=== PATIENT | male | born 1965 | race Hispanic/Latino ===

== ENCOUNTER 2017-10-22 18:46 | Emergency (ER) | payer SELFPAY ==
[~2017-10-22] VITALS: Ht 182.9 cm; Wt 103.4 kg
[~2017-10-22 18:46] MED LIST: AMLODIPINE5 MG PO; AMOXICILLIN400 MG OR; ATENOLOL50 MG PO; BACTRIM DS PO; BACTRIM DS1 TAB PO; BENADRYL 50MG C50 MG PO; BUSPIRONE15 M1 OR; CEPHALEXIN500 MG OR; CIPRO500 MG OR; CRESTOR10 MG OR; DOESN'T KNOW MEDS; FLAGYL500 MG OR; GLIMEPIRIDE2 MG PO; GLUCOVANCE5 MG/500 M OR; GLYNASE3 MG OR; HYDROCHLOROT25 MG OR; IBUPROFEN800 MG PO; ISOSORB MONO30 MG OR; JANUVIA100 MG OR; JANUVIA100 MG PO; LEXAPRO20 MG OR; LISINOP/HCTZ1 TAB OR; LISINOPRIL10 MG PO; LISINOPRIL20 MG OR; LORTAB PO; LOTREL1 CA3 OR; LYRICA150 MG PO; MEDDOSEPAK PO; METFORMIN1000 MG PO; METFORMIN500 M1 PO; METFORMIN500 M2 OR; METFORMIN500 MG PO; NALTREXONE50 MG OR; NAPROSYN500 MG PO; NITROGLYCER0.4 MG SL; NORVASC5 MG PO; PEPCID20 MG PO; PERCOCET 5/325M1 TAB OR; PRAVACHOL80 MG OR; PRAVASTATIN80 MG PO; RELION ULTIMA T1 TES XX; ROBITUSSIN AC10 ML OR; TENORMIN OR; [UNRECOGNIZED DRUG - REMARK]
[2017-10-22 20:18] LABS: URINE BILIRUBIN - DIPSTICK NEGATIVE (NEGATIVE); URINE BLOOD DIPSTICK NEGATIVE (NEGATIVE); URINE COLOR YELLOW; URINE GLUCOSE - DIPSTICK 500 mg/dL (NEGATIVE); URINE KETONE NEGATIVE (NEGATIVE); URINE NITRITE - DIPSTICK NEGATIVE (Negative); URINE PH 6.5 (4.5-8.0); URINE PROTEIN - DIPSTICK NEGATIVE (NEG-TRACE); URINE SPECIFIC GRAVITY 1.025
[2017-10-22 20:25] LABS: URINE CLARITY CLEAR; URINE LEUK ESTERASE SMALL (NEGATIVE)
[2017-10-22 20:36] LABS: URINE RBC 0-2 RBC/hpf (0-5); URINE SQUAMOUS EPITHELIAL CELL RARE EPI/hpf (0-FEW)
[2017-10-22 20:40] LABS: IMMATURE GRANULOCYTES 0.6 % (0.0-1.0); MEAN CELL VOLUME 111.8 fL CALC (80.0-100.0); MEAN CORPUSCULAR HGB 41.5 pG CALC (26.0-32.0); MEAN CORPUSCULAR HGB CONC 37.1 g/L CALC (32.0-36.0); NEUT# 7.64 thou/uL (1.82-7.42); RED BLOOD COUNT 3.13 mill/uL (4.70-6.10); RED CELL DISTRI WIDTH 11.8 % (11.5-15.5)
[2017-10-22 20:52] LABS: ALBUMIN 4.5 g/dL (3.2-5.0); ALKALINE PHOSPHATASE 94 u/l (38-126); AMYLASE 57 u/l (30-110); ANION GAP 17 (6-22 (CALC)); BILIRUBIN, TOTAL 0.6 mg/dL (0.0-1.4); BUN 14 mg/dL (9-20); BUN/CREATININE RATIO 16 (12-20 (CALC)); CALCIUM 9.8 mg/dL (8.4-10.2); CARBON DIOXIDE 25 mmol/l (22-30); CHLORIDE 100 mmol/l (95-108); CREATININE 0.9 mg/dL (0.7-1.3); GFR > 60 ML/MIN (>=60 (CALC)); GFR FOR AFR.AMER. > 60 ML/MIN (>=60 (CALC)); GLUCOSE 266 mg/dL (75-110); LIPASE 137 u/l (23-300); POTASSIUM 3.6 mmol/l (3.5-5.1); SGOT/AST 30 u/l (17-59); SGPT/ALT 36 u/l (21-72); SODIUM 139 mmol/l (137-146); TOTAL PROTEIN 7.3 g/dL (6.3-8.2)
[2017-10-22 21:04] LABS: MYOGLOBIN 62 ng/mL (0 - 121)
[2017-10-23] MEDS ORDERED: PREVACID30 M2 PO (00:29)
[2017-10-23] MEDS ORDERED: ZOFRAN ODT4 MG PO (00:29)
[2017-10-23] MEDS ORDERED: ULTRAM50 M1 PO (00:29)
[2017-10-23 00:30] VITALS: BP 153/85
== END 2017-10-23 00:30 | disposition left against medical advice (07) | DRG 392 ==
LOC: ED 18:46
PROVIDERS: Emergency Medicine
DX: R10.13 Epigastric pain (principal); R19.01 Right upper quadrant abdominal swelling, mass and lump; K80.20 Calculus of gallbladder without cholecystitis without obstruction; E11.9 Type 2 diabetes mellitus without complications; I10 Essential (primary) hypertension; Z91.19 Patient's noncompliance with other medical treatment and regimen
CPT/HCPCS: S0164

== ENCOUNTER 2018-03-02 06:40 | Emergency (ER) | payer SELFPAY ==
[~2018-03-02] VITALS: Ht 182.9 cm; Wt 100.0 kg
[~2018-03-02 06:40] MED LIST changes: +PREVACID30 M2 PO; +ULTRAM50 M1 PO; +ZOFRAN ODT4 MG PO
[2018-03-02 07:22] LABS: IMMATURE GRANULOCYTES 4.3 % (0.0-1.0); MEAN CORPUSCULAR HGB 40.9 pG CALC (26.0-32.0); MEAN CORPUSCULAR HGB CONC 33.7 g/L CALC (32.0-36.0); NEUT# 6.51 thou/uL (1.82-7.42); RED BLOOD COUNT 1.54 mill/uL (4.70-6.10); RED CELL DISTRI WIDTH 19.5 % (11.5-15.5)
[2018-03-02 07:26] LABS: HEMATOCRIT 18.7 % (39.0-50.0); HEMOGLOBIN 6.3 g/dl (14.0-18.0); MEAN CELL VOLUME 121.4 fL CALC (80.0-100.0)
[2018-03-02 07:28] LABS: ANION GAP 11 (6-22 (CALC)); BILIRUBIN, TOTAL 1.1 mg/dL (0.0-1.4); BUN 15 mg/dL (9-20); BUN/CREATININE RATIO 24 (12-20 (CALC)); CARBON DIOXIDE 28 mmol/l (22-30); CHLORIDE 101 mmol/l (95-108); CREATININE 0.6 mg/dL (0.7-1.3); GFR > 60 ML/MIN (>=60 (CALC)); GFR FOR AFR.AMER. > 60 ML/MIN (>=60 (CALC)); POTASSIUM 3.5 mmol/l (3.5-5.1); SGPT/ALT 43 u/l (21-72); SODIUM 137 mmol/l (137-146); TOTAL PROTEIN 6.3 g/dL (6.3-8.2)
[2018-03-02 07:32] LABS: ALBUMIN 3.1 g/dL (3.2-5.0); ALKALINE PHOSPHATASE 250 u/l (38-126); SGOT/AST 59 u/l (17-59)
[2018-03-02 08:02] LABS: TSH, 3RD GENERATION 1.9 uIU/mL (0.47 - 4.68)
[2018-03-02 09:35] VITALS: BP 112/65
[2018-03-02 10:15] VITALS: BP 108/67
== END 2018-03-02 10:42 | disposition short-term general hospital (02) | DRG 378 ==
LOC: ED 06:40
PROVIDERS: Emergency Medicine; Family Medicine
PROC: 30233N1 Transfusion of Nonautologous Red Blood Cells into Peripheral Vein, Percutaneous Approach (ICD-10-PCS; principal; 2018-03-02)
DX: K92.2 Gastrointestinal hemorrhage, unspecified (principal); D64.9 Anemia, unspecified; C78.7 Secondary malignant neoplasm of liver and intrahepatic bile duct; C80.1 Malignant (primary) neoplasm, unspecified; I10 Essential (primary) hypertension; E11.9 Type 2 diabetes mellitus without complications
CPT/HCPCS: P9016; Q9967

== ENCOUNTER 2018-03-10 19:35 | Inpatient (IN) | payer OTHER ==
[~2018-03-10] VITALS: Ht 182.9 cm; Wt 102.0 kg
[2018-03-10 21:07] LABS: MEAN CORPUSCULAR HGB 34.5 pG CALC (26.0-32.0); MEAN CORPUSCULAR HGB CONC 32.2 g/L CALC (32.0-36.0); NEUT# 16.41 thou/uL (1.82-7.42); RED BLOOD COUNT 2.84 mill/uL (4.70-6.10); RED CELL DISTRI WIDTH 23.3 % (11.5-15.5)
[2018-03-10 21:09] LABS: URINE BLOOD DIPSTICK NEGATIVE (NEGATIVE); URINE GLUCOSE - DIPSTICK NEGATIVE (NEGATIVE); URINE KETONE NEGATIVE (NEGATIVE); URINE LEUK ESTERASE NEGATIVE (NEGATIVE); URINE NITRITE - DIPSTICK NEGATIVE (Negative); URINE PH 5.5 (4.5-8.0); URINE PROTEIN - DIPSTICK TRACE mg/dL (NEG-TRACE); URINE SPECIFIC GRAVITY 1.025; URINE UROBILINOGEN - DIPSTICK >=8.0 E.U./dL (0.2)
[2018-03-10 21:10] LABS: HEMATOCRIT 30.4 % (39.0-50.0); HEMOGLOBIN 9.8 g/dl (14.0-18.0)
[2018-03-10 21:13] LABS: URINE BILIRUBIN - DIPSTICK NEGATIVE (NEGATIVE); URINE CLARITY CLEAR; URINE COLOR AMBER
[2018-03-10 21:18] LABS: ALKALINE PHOSPHATASE 317 u/l (38-126); ANION GAP 14 (6-22 (CALC)); BILIRUBIN, TOTAL 1.4 mg/dL (0.0-1.4); BUN 12 mg/dL (9-20); BUN/CREATININE RATIO 16 (12-20 (CALC)); CARBON DIOXIDE 28 mmol/l (22-30); CHLORIDE 98 mmol/l (95-108); CREATININE 0.8 mg/dL (0.7-1.3); GFR > 60 ML/MIN (>=60 (CALC)); GFR FOR AFR.AMER. > 60 ML/MIN (>=60 (CALC)); SGOT/AST 79 u/l (17-59); SGPT/ALT 48 u/l (21-72); SODIUM 136 mmol/l (137-146); TOTAL PROTEIN 6.4 g/dL (6.3-8.2)
[2018-03-10 21:19] LABS: POTASSIUM 4.3 mmol/l (3.5-5.1)
[2018-03-10 23:55] VITALS: BP 125/69
[2018-03-11 04:09] VITALS: BP 116/68
[2018-03-11 05:47] LABS: ANION GAP 12 (6-22 (CALC)); BUN 12 mg/dL (9-20); BUN/CREATININE RATIO 17 (12-20 (CALC)); CARBON DIOXIDE 26 mmol/l (22-30); CHLORIDE 101 mmol/l (95-108); CREATININE 0.7 mg/dL (0.7-1.3); GFR > 60 ML/MIN (>=60 (CALC)); GFR FOR AFR.AMER. > 60 ML/MIN (>=60 (CALC)); HEMATOCRIT 25.8 % (39.0-50.0); HEMOGLOBIN 8.4 g/dl (14.0-18.0); IMMATURE GRANULOCYTES 1.5 % (0.0-1.0); MEAN CELL VOLUME 107.1 fL CALC (80.0-100.0); MEAN CORPUSCULAR HGB 34.9 pG CALC (26.0-32.0); MEAN CORPUSCULAR HGB CONC 32.6 g/L CALC (32.0-36.0); NEUT# 15.51 thou/uL (1.82-7.42); POTASSIUM 4.1 mmol/l (3.5-5.1); RED BLOOD COUNT 2.41 mill/uL (4.70-6.10); RED CELL DISTRI WIDTH 23.2 % (11.5-15.5); SODIUM 136 mmol/l (137-146)
[2018-03-11 08:42] VITALS: BP 116/69
[2018-03-11 11:00] VITALS: BP 116/67
[2018-03-11 15:17] LABS: CHOLESTEROL HDL RATIO 6.5 (<4.4 (CALC)); MAGNESIUM 2.3 mg/dL (1.6-2.3)
[2018-03-11 16:50] VITALS: BP 116/71
[2018-03-11 19:00] VITALS: BP 111/66
[2018-03-12 00:05] VITALS: BP 106/65
[2018-03-12 04:20] VITALS: BP 112/70
[2018-03-12 05:03] LABS: HEMATOCRIT 26.1 % (39.0-50.0); HEMOGLOBIN 8.2 g/dl (14.0-18.0); IMMATURE GRANULOCYTES 1.8 % (0.0-1.0); MEAN CELL VOLUME 106.5 fL CALC (80.0-100.0); MEAN CORPUSCULAR HGB 33.5 pG CALC (26.0-32.0); MEAN CORPUSCULAR HGB CONC 31.4 g/L CALC (32.0-36.0); NEUT# 15.11 thou/uL (1.82-7.42); RED BLOOD COUNT 2.45 mill/uL (4.70-6.10); RED CELL DISTRI WIDTH 22.5 % (11.5-15.5)
[2018-03-12 05:25] LABS: ANION GAP 12 (6-22 (CALC)); BUN 11 mg/dL (9-20); BUN/CREATININE RATIO 17 (12-20 (CALC)); CARBON DIOXIDE 26 mmol/l (22-30); CHLORIDE 103 mmol/l (95-108); CREATININE 0.7 mg/dL (0.7-1.3); GFR > 60 ML/MIN (>=60 (CALC)); GFR FOR AFR.AMER. > 60 ML/MIN (>=60 (CALC)); MAGNESIUM 2.2 mg/dL (1.6-2.3); POTASSIUM 4.4 mmol/l (3.5-5.1); SODIUM 136 mmol/l (137-146)
[2018-03-12 07:49] VITALS: BP 101/62
[2018-03-12 11:08] VITALS: BP 104/62
[2018-03-12] MEDS ORDERED: OXYCODONE/ACETA1 TA8 PO (12:40)
[2018-03-12] MEDS ORDERED: METRONIDAZOL500 MG PO (12:40)
[2018-03-12] MEDS ORDERED: CIPROFLOXACN500 MG PO (12:40)
[2018-03-12 15:16] VITALS: BP 99/64
== END 2018-03-12 16:10 | disposition home or self-care (01) | DRG 872 ==
LOC: ED 19:35 → ED-I 22:20 → ED 22:44 → MS2 22:45
PROVIDERS: Nurse Practitioner Family; ADMIT Internal Medicine; ATTEND Internal Medicine
PROC: 3E0234Z Introduction of Serum, Toxoid and Vaccine into Muscle, Percutaneous Approach (ICD-10-PCS; principal; 2018-03-12)
DX: A41.9 Sepsis, unspecified organism (principal); C78.7 Secondary malignant neoplasm of liver and intrahepatic bile duct; C16.9 Malignant neoplasm of stomach, unspecified; R18.8 Other ascites; E11.9 Type 2 diabetes mellitus without complications; D64.9 Anemia, unspecified; K59.00 Constipation, unspecified; I10 Essential (primary) hypertension; E78.5 Hyperlipidemia, unspecified; G89.3 Neoplasm related pain (acute) (chronic); Z79.84 Long term (current) use of oral hypoglycemic drugs; M62.59 Muscle wasting and atrophy, not elsewhere classified, multiple sites; Z23 Encounter for immunization

== ENCOUNTER 2018-03-23 21:35 | Emergency (ER) | payer OTHER ==
[~2018-03-23] VITALS: Ht 182.9 cm; Wt 105.0 kg
[~2018-03-23 21:35] MED LIST changes: +CIPROFLOXACN500 MG PO; +METRONIDAZOL500 MG PO; +OXYCODONE/ACETA1 TA8 PO
[2018-03-23] MEDS ORDERED: FUROSEMIDE40 MG PO (21:45)
[2018-03-23 23:13] LABS: HEMATOCRIT 30.5 % (39.0-50.0); HEMOGLOBIN 9.6 g/dl (14.0-18.0); IMMATURE GRANULOCYTES 1.8 % (0.0-1.0); MEAN CELL VOLUME 101.7 fL CALC (80.0-100.0); MEAN CORPUSCULAR HGB CONC 31.5 g/L CALC (32.0-36.0); NEUT# 16.13 thou/uL (1.82-7.42); RED CELL DISTRI WIDTH 21.5 % (11.5-15.5)
[2018-03-23 23:26] LABS: ALKALINE PHOSPHATASE 390 u/l (38-126); AMYLASE 91 u/l (30-110); ANION GAP 16 (6-22 (CALC)); BILIRUBIN, TOTAL 0.8 mg/dL (0.0-1.4); BUN 10 mg/dL (9-20); BUN/CREATININE RATIO 17 (12-20 (CALC)); CARBON DIOXIDE 26 mmol/l (22-30); CHLORIDE 102 mmol/l (95-108); CREATININE 0.6 mg/dL (0.7-1.3); GFR > 60 ML/MIN (>=60 (CALC)); GFR FOR AFR.AMER. > 60 ML/MIN (>=60 (CALC)); LIPASE 334 u/l (23-300); POTASSIUM 4.4 mmol/l (3.5-5.1); SGOT/AST 73 u/l (17-59); SGPT/ALT 39 u/l (21-72); SODIUM 139 mmol/l (137-146); TOTAL PROTEIN 6.3 g/dL (6.3-8.2)
[2018-03-24] MEDS ORDERED: LORTAB 1010 MG PO (00:21)
[2018-03-24] MEDS ORDERED: CIPROFLOXACN500 MG PO (00:21)
[2018-03-24 00:40] VITALS: BP 117/74
== END 2018-03-24 00:40 | disposition home or self-care (01) | DRG 948 ==
LOC: ED 21:35
PROVIDERS: Emergency Medicine
DX: G89.3 Neoplasm related pain (acute) (chronic) (principal); C16.9 Malignant neoplasm of stomach, unspecified; C79.9 Secondary malignant neoplasm of unspecified site; E11.9 Type 2 diabetes mellitus without complications; I10 Essential (primary) hypertension; Z79.899 Other long term (current) drug therapy

== ENCOUNTER 2018-03-28 16:39 | Observation (INO) | payer OTHER ==
[~2018-03-28] VITALS: Ht 182.9 cm; Wt 106.0 kg
[~2018-03-28 16:39] MED LIST changes: +FUROSEMIDE40 MG PO; +LORTAB 1010 MG PO
--- NOTE | 2018-03-28 16:51 | NUR ---
PT TO ROOM PER W/C
[2018-03-28 17:45] LABS: HEMATOCRIT 31.1 % (39.0-50.0); HEMOGLOBIN 9.9 g/dl (14.0-18.0); IMMATURE GRANULOCYTES 0.9 % (0.0-1.0); MEAN CELL VOLUME 101.3 fL CALC (80.0-100.0); MEAN CORPUSCULAR HGB 32.2 pG CALC (26.0-32.0); MEAN CORPUSCULAR HGB CONC 31.8 g/L CALC (32.0-36.0); NEUT# 16.34 thou/uL (1.82-7.42); RED BLOOD COUNT 3.07 mill/uL (4.70-6.10); RED CELL DISTRI WIDTH 21.6 % (11.5-15.5)
[2018-03-28 17:55] LABS: ALBUMIN 2.9 g/dL (3.2-5.0); ALKALINE PHOSPHATASE 342 u/l (38-126); ANION GAP 9 (6-22 (CALC)); BILIRUBIN, TOTAL 1.2 mg/dL (0.0-1.4); BUN 11 mg/dL (9-20); BUN/CREATININE RATIO 15 (12-20 (CALC)); CARBON DIOXIDE 31 mmol/l (22-30); CHLORIDE 100 mmol/l (95-108); CREATININE 0.7 mg/dL (0.7-1.3); GFR > 60 ML/MIN (>=60 (CALC)); GFR FOR AFR.AMER. > 60 ML/MIN (>=60 (CALC)); POTASSIUM 4.5 mmol/l (3.5-5.1); SGOT/AST 61 u/l (17-59); SGPT/ALT 38 u/l (21-72); SODIUM 135 mmol/l (137-146)
--- NOTE | 2018-03-28 17:55 | NUR ---
PT PROVIDED MORPHINE FOR PAIN RELIEF, THIS AFTER RIGHT SIDED PORT ACCESSED.
--- NOTE | 2018-03-28 19:40 | NUR ---
PT.ARRIVED TO THE FLOOR VIA STRETCHER ACCOMPANIED BY FEI SHAY FROM ED. PT.APPEARS TO BE IN STABLE CONDITION AT THIS TIME. PT.REPORTS THAT HIS PAIN IS RESPONDING TO MEDICATIONS ADMINISTERED IN ED AND IS BETWEEN 3 AND 4 NOW ON PAIN SCALE. V/S ARE BEING ASSESSED AND PT.ORIENTED TO CALL SYSTEM,LIGHTS,BED,ROOM,AND TV. BS WAS 90 AND PT.GIVEN DIET CLEAR SODA AND CHICKEN BROTH. WILL FOLLOW-UP WITH ASSESSMENT AND ANY MEDICATIONS ORDERED.
--- NOTE | 2018-03-28 19:40 | NUR ---
REPORT CALLED TO BABATUNDE ENAMORADO, PT TAKEN TO ROOM 290 WITHOUT INCIDENT.
[2018-03-28 19:45] VITALS: BP 122/77
--- NOTE | 2018-03-28 21:30 | NUR ---
ASSESSMENT COMPLETED: LUNG SOUNDS DIM/CLEAR, ABD IS DISTENDED AND HARD, LOWER EXTREMETIES ARE EDEMATOUS BILATERALLY, PT.LOCX4, DENIES N/V, BUT REPORTS THAT HE HAS NOT BEEN ABLE TO EAT FOR THE LAST TWO DAYS DUE TO LACK OF ABILITY TO TASTE. PT.AMBULATES, BUT IS VERY WEAK AND NEEDS STANDBY ASSISTANCE, HE HAS BEEN INSTRUCTED TO CALL IF HE NEEDS TO GET UP.
--- NOTE | 2018-03-28 22:09 | NUR ---
PT.MEDICATED W/FLAGYL AND IV FLUIDS. DENIES ANY OTHER NEEDS AT THIS TIME. PT.WAS SLEEPING IN HIGH FOWLERS POSITION, BUT AWOKE TO MY ENTERING ROOM. LIGHTS ARE BACK OFF AND CALL LIGHT AT SIDE.
--- NOTE | 2018-03-28 23:58 | NUR ---
PT.MEDICATED ORDERS PROVIDE. PT.IS SLEEPING, BUT AWOKE TO MY VOICE AND PROMPTLY RETURNED BACK TO SLEEP. DENIES ANY NEEDS AT THIS TIME. PT.LEFT IN HIGH FOWLERS POSITION W/LIGHTS OUT. CALL LIGHT IS W/IN REACH
--- NOTE | 2018-03-29 02:25 | NUR ---
PT.IS ASLEEP, POTATO INSPECTOR AT BEDSIDE SEWING. CBI PATENT AND DRAINING CLEAR PALE YELLOW URINE AT THIS TIME, 600CC OF URINE OUTPUT RECORDED AT THIS TIME. NO S/S OF DISTRESS. IV FLUIDS ARE RUNNING NS@100.
--- NOTE | 2018-03-29 02:35 | NUR ---
PT.IS SLEEPING AT THIS TIME IN HIGH FOWLERS POSITION. LIGHTS AND TV ARE OUT. NO S/S OF DISTRESS NOTED AT THIS TIME. CALL LIGHT IS AT BEDSIDE. IV FLUIDS ARE RUNNING NS@125. WILL CONTINUE TO MONITOR
--- NOTE | 2018-03-29 04:30 | NUR ---
V/S HAVE BEEN ASSESSED, LAB IS IN TO SEE PT FOR 2ND BLOOD CULTURE DRAWS, PT.REPORTS PAIN LEVEL 2/10 ON PAIN SCALE. PT ASSISTED IN USING URINAL AT BEDSIDE, 700CC CLEAR [place]UST[place] URINE OUTPUT. ICE PROVIDED/REQUEST AND PT.ENCOURAGED TO DRINK PO FLUIDS.
[2018-03-29 04:40] VITALS: BP 116/74
[2018-03-29 05:09] LABS: URINE BLOOD DIPSTICK NEGATIVE (NEGATIVE); URINE COLOR YELLOW; URINE GLUCOSE - DIPSTICK NEGATIVE (NEGATIVE); URINE KETONE TRACE mg/dL (NEGATIVE); URINE NITRITE - DIPSTICK NEGATIVE (Negative); URINE PROTEIN - DIPSTICK NEGATIVE (NEG-TRACE)
[2018-03-29 05:10] LABS: URINE CLARITY SL CLOUDY
[2018-03-29 05:10] LABS: HEMATOCRIT 30.8 % (39.0-50.0); HEMOGLOBIN 9.5 g/dl (14.0-18.0); MEAN CELL VOLUME 103.4 fL CALC (80.0-100.0); MEAN CORPUSCULAR HGB 31.9 pG CALC (26.0-32.0); MEAN CORPUSCULAR HGB CONC 30.8 g/L CALC (32.0-36.0); RED BLOOD COUNT 2.98 mill/uL (4.70-6.10); RED CELL DISTRI WIDTH 21.8 % (11.5-15.5)
[2018-03-29 05:11] LABS: URINE BILIRUBIN - DIPSTICK SMALL (NEGATIVE); URINE LEUK ESTERASE SMALL (NEGATIVE)
[2018-03-29 05:17] LABS: BARBITURATES NEGATIVE (NEGATIVE); COCAINE POSITIVE (NEGATIVE); METHADONE NEGATIVE (NEGATIVE); OXCYCODONE NEGATIVE (NEGATIVE); TETRAHYDROCANNABIONOL NEGATIVE (NEGATIVE); TRICYLIC ANTIDEPRESSANTS NEGATIVE (NEGATIVE)
[2018-03-29 05:19] LABS: ANION GAP 7 (6-22 (CALC)); BUN 11 mg/dL (9-20); BUN/CREATININE RATIO 18 (12-20 (CALC)); CARBON DIOXIDE 30 mmol/l (22-30); CHLORIDE 102 mmol/l (95-108); CREATININE 0.7 mg/dL (0.7-1.3); GFR > 60 ML/MIN (>=60 (CALC)); GFR FOR AFR.AMER. > 60 ML/MIN (>=60 (CALC)); POTASSIUM 4.3 mmol/l (3.5-5.1); SODIUM 135 mmol/l (137-146)
[2018-03-29 05:20] LABS: URINE BACTERIA FEW hpf; URINE RBC 0-2 RBC/hpf (0-5); URINE SQUAMOUS EPITHELIAL CELL FEW EPI/hpf (0-FEW)
--- NOTE | 2018-03-29 06:00 | NUR ---
PT.MEDICATED W/ANTIBIOTIC THERAPY ORDERS PROVIDE. PT.IS SLEEPING W/LIGHTS OUT. NO S/S OF DISTRESS NOTED. CALL LIGHT W/IN REACH
--- NOTE | 2018-03-29 07:00 | NUR ---
RECEIVED BEDSIDE REPORT FROM BABATUNDE ENAMORADO. SITTING IN BEDSIDE CHAIR. RESPS EVEN AND UNLABORED ON ROOM AIR. PORT TO RIGHT SUBCLAVIAN INFUSING WITHOUT DIFFICULTY, DRESSING CDI. VOICES NO NEEDS AT THIS TIME. PLAN OF CARE DISCUSSED. SAFTEY PRECAUTIONS REINFORCED. BED IN LOWEST POSITION WITH WHEELS LOCKED. CALL LIGHT WITHIN REACH. ENCOURAGED PT TO CALL FOR ANY NEEDS.
[2018-03-29 08:16] VITALS: BP 107/65
--- NOTE | 2018-03-29 10:50 | NUR ---
DR COWAN AT BEDSIDE, NEW ORDERS RECEIVED.
--- NOTE | 2018-03-29 12:00 | NUR ---
SITTING ON EDGE OF BED EATING LUNCH. RESPS EVEN AND UNLABORED ON ROOM AIR. VOICES NO NEEDS AT THIS TIME. AT BEDSIDE. CALL LIGHT WITHIN REACH. WILL CONTINUE TO MONITOR.
--- NOTE | 2018-03-29 14:27 | NUR ---
MEDICATED WITH LORTAB PO FOR C/O 5/10 ABD PAIN. AT BEDSIDE. WILL CONTINUE TO MONITOR.
[2018-03-29 15:30] VITALS: BP 109/71
[2018-03-29 19:05] VITALS: BP 112/73
--- NOTE | 2018-03-29 20:15 | NUR ---
PT.MEDICATED FOR PAIN ORDERS PROVIDE. PT.REPORTS PAIN IN HIS UPPER RIGHT ABD 03/29. PT.DENIES ANY OTHER NEEDS AT THIS TIME STATING THAT HE JUST WANTS TO GO TO SLEEP. POC WAS DISCUSSED W/PT. I WILL FOLLOW-UP WITH ANTIBIOTIC THERAPY. PT.HAS BEEN ENCOURAGED TO CALL IF ANY NEEDS ARISE. CALL LIGHT AT BEDSIDE.
--- NOTE | 2018-03-29 22:17 | NUR ---
PT.MEDICATED W/ANTIBIOTIC THERAPY ORDERS PROVIDE. PT.IS IN BED APPEARS TO BE RESTFULL, DENIES ANY NEEDS AT THIS TIME. CALL LIGHT AT BEDSIDE.
--- NOTE | 2018-03-30 00:05 | NUR ---
PT.MEDICATED ORDERS PROVIDE. PT.WAS SITTING ON SIDE OF THE BED WHEN I ENTERED THE ROOM. HE STATED THAT HE IS JUST A LITTLE UNCOMFORTABLE ON UPPER RIGHT SIDE OF ABD WHEN HE LAYS DOWN. I ASSISTED HIM INTO RECLINER. HE DID NOT WANT HIS FEET ELEVATED OR BLANKET. CALL LIGHT MOVED TO CHAIR FOR HIS REACH AND ENCOURAGED HIM TO CALL ME IF THERE IS ANY ASSISTANCE THAT I CAN PROVIDE. CHICKEN BROTH OFFERED/DENIED. DENIED PAIN MEDICATION AT THIS TIME.
--- NOTE | 2018-03-30 03:04 | NUR ---
PT.MEDICATED FOR PAIN 8/10 ON PAIN SCALE. PT.STATES IN UPPER RIGHT QUADRANT. IV FLUIDS ARE RUNNING @20MLS/HR. PT.IS UP IN RECLINER, JUST MOVED AGAIN FROM THE BED. ICE-CHIPS PROVIDED. PT.DENIES ANY OTHER NEEDS AT THIS TIME. I ENCOURAGED PT.TO CALL IF ANY OTHER NEEDS ARISE. CALL LIGHT AT SIDE.
--- NOTE | 2018-03-30 04:00 | NUR ---
PT.UPRIGHT IN RECLINER W/FEET ON FLOOR. V/S ASSESSED AND PT.OFFERED ASSISTANCE IN ELEVATING FEET/DENIED. IV FLUIDS ARE RUNNING TO PORT IN LSC @20MLS. PT.REPORTS THAT PAIN LEVEL 2/10 IN RIGHT UPPER QUAD OF ABD. CALL LIGHT AT PT.SIDE AND HE HAS BEEN ENCOURAGED TO CALL IF NEEDS ARISE.
[2018-03-30 04:25] VITALS: BP 110/69
[2018-03-30 05:08] LABS: HEMATOCRIT 31.6 % (39.0-50.0); HEMOGLOBIN 9.9 g/dl (14.0-18.0); IMMATURE GRANULOCYTES 0.9 % (0.0-1.0); MEAN CELL VOLUME 101.6 fL CALC (80.0-100.0); MEAN CORPUSCULAR HGB 31.8 pG CALC (26.0-32.0); MEAN CORPUSCULAR HGB CONC 31.3 g/L CALC (32.0-36.0); NEUT# 14.4 thou/uL (1.82-7.42); RED BLOOD COUNT 3.11 mill/uL (4.70-6.10); RED CELL DISTRI WIDTH 21.2 % (11.5-15.5)
[2018-03-30 05:27] LABS: ANION GAP 7 (6-22 (CALC)); BUN 12 mg/dL (9-20); BUN/CREATININE RATIO 13 (12-20 (CALC)); CARBON DIOXIDE 31 mmol/l (22-30); CHLORIDE 101 mmol/l (95-108); CREATININE 0.9 mg/dL (0.7-1.3); GFR > 60 ML/MIN (>=60 (CALC)); GFR FOR AFR.AMER. > 60 ML/MIN (>=60 (CALC)); MAGNESIUM 2.1 mg/dL (1.6-2.3); POTASSIUM 4.1 mmol/l (3.5-5.1); SODIUM 135 mmol/l (137-146)
--- NOTE | 2018-03-30 05:40 | NUR ---
PT.MEDICATED W/IV ANTIBIOTIC THERAPY. HE IS SITTING ON THE SIDE OF THE BED UPRIGHT. PT.DENIES ANY NEEDS AT THIS TIME. CALL LIGHT AT BEDSIDE
--- NOTE | 2018-03-30 07:00 | NUR ---
RECEIVED BEDSIDE REPORT FROM BABATUNDE ENAMORADO. SITTING IN BEDSIDE CHAIR. RESPS EVEN AND UNLABORED ON ROOM AIR. NS INFUSING WITHOUT DIFFICULTY TO RIGHT SUBCLAVIAN PORT. DENIES PAIN OR DISCOMFORT. PLAN OF CARE DISCUSSED. SAFETY PRECAUTIONS REINFORCED. BED IN LOWEST POSITION WITH WHEELS LOCKED. CALL LIGHT WITHIN REACH. ENCOURAGED PT TO CALL FOR ANY NEEDS.
[2018-03-30 07:41] VITALS: BP 101/61
--- NOTE | 2018-03-30 09:50 | NUR ---
DR COWAN AT BEDSIDE, NEW ORDERS RECEIVED.
[2018-03-30] MEDS ORDERED: LORTAB 7.57.5 MG PO (10:08)
[2018-03-30] MEDS ORDERED: FLEXERIL5 MG PO (10:10)
[2018-03-30] MEDS ORDERED: HYDROCO/APAP1 T10 PO (11:10)
--- NOTE | 2018-03-30 11:28 | NUR ---
PORT TO RIGHT SUBCLAVIAN DC'D PER PROTOCOL. TOLERATED WELL. SITE FREE FROM REDNESS OR BLEEDING
--- NOTE | 2018-03-30 11:36 | NUR ---
Discharge instructions given. Patient verbalizes understanding of same. Discharged in stable condition via Wheelchair to Home with spouse. All belongings sent with pt.
== END 2018-03-30 11:36 | disposition home or self-care (01) | DRG 948 ==
LOC: ED 16:39 → ED-I 18:32 → ED 18:51 → MS2 18:52
PROVIDERS: Emergency Medicine; Nurse Practitioner Family; ADMIT Internal Medicine; ATTEND Internal Medicine
DX: R53.1 Weakness (principal); C78.7 Secondary malignant neoplasm of liver and intrahepatic bile duct; C16.9 Malignant neoplasm of stomach, unspecified; R18.8 Other ascites; E87.1 Hypo-osmolality and hyponatremia; D72.829 Elevated white blood cell count, unspecified; E11.9 Type 2 diabetes mellitus without complications; I10 Essential (primary) hypertension; R62.7 Adult failure to thrive; E78.5 Hyperlipidemia, unspecified; R42 Dizziness and giddiness; R63.0 Anorexia; M62.830 Muscle spasm of back; Z79.899 Other long term (current) drug therapy; Z91.14 Patient's other noncompliance with medication regimen
CPT/HCPCS: G0378

== ENCOUNTER 2018-04-11 22:29 | Emergency (ER) | payer OTHER ==
[~2018-04-11] VITALS: Ht 182.9 cm; Wt 105.9 kg
[~2018-04-11 22:29] MED LIST changes: +FLEXERIL5 MG PO; +HYDROCO/APAP1 T10 PO; +LORTAB 7.57.5 MG PO
[2018-04-11] MEDS ORDERED: SPIRONOLACT25 MG PO (22:56)
[2018-04-11 23:29] LABS: HEMATOCRIT 32.2 % (39.0-50.0); HEMOGLOBIN 10.5 g/dl (14.0-18.0); IMMATURE GRANULOCYTES 1.3 % (0.0-1.0); MEAN CORPUSCULAR HGB 30.6 pG CALC (26.0-32.0); MEAN CORPUSCULAR HGB CONC 32.6 g/L CALC (32.0-36.0); NEUT# 14.74 thou/uL (1.82-7.42); RED BLOOD COUNT 3.43 mill/uL (4.70-6.10); RED CELL DISTRI WIDTH 18.8 % (11.5-15.5)
[2018-04-11 23:30] LABS: MEAN CELL VOLUME 93.9 fL CALC (80.0-100.0)
[2018-04-11 23:43] LABS: ALBUMIN 2.9 g/dL (3.2-5.0); ALKALINE PHOSPHATASE 472 u/l (38-126); ANION GAP 12 (6-22 (CALC)); BILIRUBIN, TOTAL 1.3 mg/dL (0.0-1.4); BUN 21 mg/dL (9-20); BUN/CREATININE RATIO 28 (12-20 (CALC)); CARBON DIOXIDE 28 mmol/l (22-30); CHLORIDE 95 mmol/l (95-108); CREATININE 0.8 mg/dL (0.7-1.3); GFR > 60 ML/MIN (>=60 (CALC)); GFR FOR AFR.AMER. > 60 ML/MIN (>=60 (CALC)); POTASSIUM 4.1 mmol/l (3.5-5.1); SGPT/ALT 44 u/l (21-72); SODIUM 131 mmol/l (137-146); TOTAL PROTEIN 6.5 g/dL (6.3-8.2)
[2018-04-11 23:44] LABS: SGOT/AST 115 u/l (17-59)
[2018-04-12 01:00] VITALS: BP 103/68
[2018-04-12] MEDS ORDERED: LASIX 40 MG TAB40 MG PO (23:05)
== END 2018-04-12 01:00 | disposition home or self-care (01) | DRG 897 ==
LOC: ED 22:29
PROVIDERS: Family Medicine
DX: F14.10 Cocaine abuse, uncomplicated (principal); C16.9 Malignant neoplasm of stomach, unspecified; C78.7 Secondary malignant neoplasm of liver and intrahepatic bile duct; I10 Essential (primary) hypertension; E11.9 Type 2 diabetes mellitus without complications; R07.89 Other chest pain; R06.02 Shortness of breath

== ENCOUNTER 2018-04-12 21:06 | Emergency (ER) | payer OTHER ==
[~2018-04-12] VITALS: Ht 182.9 cm; Wt 106.0 kg
[~2018-04-12 21:06] MED LIST changes: +SPIRONOLACT25 MG PO
[2018-04-12 21:52] LABS: HEMATOCRIT 32.9 % (39.0-50.0); HEMOGLOBIN 10.7 g/dl (14.0-18.0); IMMATURE GRANULOCYTES 1.8 % (0.0-1.0); MEAN CORPUSCULAR HGB 30.6 pG CALC (26.0-32.0); MEAN CORPUSCULAR HGB CONC 32.5 g/L CALC (32.0-36.0); NEUT# 14.78 thou/uL (1.82-7.42); RED BLOOD COUNT 3.5 mill/uL (4.70-6.10); RED CELL DISTRI WIDTH 19.1 % (11.5-15.5)
[2018-04-12 21:59] LABS: ALBUMIN 2.6 g/dL (3.2-5.0); ALKALINE PHOSPHATASE 434 u/l (38-126); ANION GAP 10 (6-22 (CALC)); BILIRUBIN, TOTAL 1.2 mg/dL (0.0-1.4); BUN 23 mg/dL (9-20); BUN/CREATININE RATIO 32 (12-20 (CALC)); CARBON DIOXIDE 27 mmol/l (22-30); CHLORIDE 97 mmol/l (95-108); CREATININE 0.7 mg/dL (0.7-1.3); GFR > 60 ML/MIN (>=60 (CALC)); GFR FOR AFR.AMER. > 60 ML/MIN (>=60 (CALC)); POTASSIUM 4.2 mmol/l (3.5-5.1); SGOT/AST 108 u/l (17-59); SGPT/ALT 45 u/l (21-72); SODIUM 130 mmol/l (137-146); TOTAL PROTEIN 6.1 g/dL (6.3-8.2)
[2018-04-12 22:11] LABS: MYOGLOBIN 77 ng/mL (0 - 121)
[2018-04-12] MEDS ORDERED: LASIX 40 MG TAB40 MG PO (23:05)
[2018-04-12 23:40] VITALS: BP 100/65
== END 2018-04-12 23:40 | disposition home or self-care (01) | DRG 375 ==
LOC: ED 21:06
PROVIDERS: Family Medicine
DX: C16.9 Malignant neoplasm of stomach, unspecified (principal); C78.7 Secondary malignant neoplasm of liver and intrahepatic bile duct; R18.8 Other ascites; R64 Cachexia; I10 Essential (primary) hypertension; E11.9 Type 2 diabetes mellitus without complications; R06.02 Shortness of breath; R42 Dizziness and giddiness; R10.9 Unspecified abdominal pain

== ENCOUNTER 2018-04-17 08:27 | Emergency (ER) | payer OTHER ==
[~2018-04-17 08:27] MED LIST changes: +LASIX 40 MG TAB40 MG PO
== END 2018-04-17 08:30 | disposition expired | DRG 375 ==
LOC: ED 08:27
PROC: 5A12012 Performance of Cardiac Output, Single, Manual (ICD-10-PCS; principal; 2018-04-17)
DX: C16.9 Malignant neoplasm of stomach, unspecified (principal); C78.7 Secondary malignant neoplasm of liver and intrahepatic bile duct; I46.8 Cardiac arrest due to other underlying condition; R64 Cachexia; I10 Essential (primary) hypertension; E11.9 Type 2 diabetes mellitus without complications; E78.00 Pure hypercholesterolemia, unspecified